=== PATIENT | female | born 1990 | race African-American/Black ===

== ENCOUNTER 2022-11-18 17:41 | Emergency (ER) | payer OTHER ==
[2022-11-18 18:01] VITALS: BP 116/77; PULSE 95; RESP 18; TEMP 97.7; BMI 31.6
[2022-11-18] MEDS ORDERED: LORATADINE 10 MG TABLET PO ONE (18:18)
[2022-11-18] MEDS ORDERED: LORATADINE 10 MG TABLET ONE (18:20)
[2022-11-18 19:01] LABS: THROAT:GRP A STREP NOT DETECTED (NOTDETECTED)
== END 2022-11-18 18:29 | disposition home or self-care (01) ==
LOC: JERFT 17:41 → JER 17:41 → JERFT 18:29
DX: J30.89 Other allergic rhinitis (principal); R07.0 Pain in throat; H57.9 Unspecified disorder of eye and adnexa; H04.209 Unspecified epiphora, unspecified side
CPT/HCPCS: 0241U-QW; 87651; 99283-25

== ENCOUNTER 2023-04-22 16:18 | Emergency (ER) | payer OTHER ==
[2023-04-22 16:49] VITALS: BP 106/66; PULSE 92; RESP 18; TEMP 97.4; BMI 32.7
== END 2023-04-22 18:39 | disposition home or self-care (01) ==
LOC: JERFT 16:18 → JER 16:18 → JERFT 18:39
DX: N63.20 Unspecified lump in the left breast, unspecified quadrant (principal)
CPT/HCPCS: 99282-25

== ENCOUNTER → 2023-05-16 | Day surgery (SDC) | payer OTHER | END | disposition home or self-care (01) | LOC: JRADUS-SUR 08:26 | PROVIDERS: ATTEND Registered Nurse | PROC: 0H9U3ZX Drainage of Left Breast, Percutaneous Approach, Diagnostic (ICD-10-PCS; principal; 2023-05-16) | DX: N64.89 Other specified disorders of breast (principal) | CPT/HCPCS: 19083; 19084; 76641-TC-LT; 77065-TC; 87899; A4648 ==

== ENCOUNTER 2023-08-22 19:11 | Emergency (ER) | payer OTHER ==
[2023-08-22 19:46] VITALS: BP 121/80; PULSE 83; RESP 20; TEMP 98.1; BMI 32.8
[2023-08-22] MEDS: ACETAMINOPHEN 325 MG TABLET (FP) PO ONE (22:19)
[2023-08-22] MEDS ORDERED: ACETAMINOPHEN 500 MG TABLET (FP) ONE (22:20)
== END 2023-08-22 22:28 | disposition home or self-care (01) ==
LOC: JERFT 19:11 → JER 19:11 → JERFT 22:28
DX: M25.571 Pain in right ankle and joints of right foot (principal); X50.1XXA Overexertion from prolonged static or awkward postures, initial encounter
CPT/HCPCS: 73610-TC-RT-FY; 73630-TC-RT-FY; 99283-25

== ENCOUNTER 2024-01-12 18:46 | Emergency (ER) | payer OTHER ==
[2024-01-12 19:19] VITALS: BP 114/72; PULSE 88; RESP 18; TEMP 98; BMI 36.2
[2024-01-12] MEDS: ALBUTEROL SO4 HFA INHALER IH PRN (20:03)
[2024-01-12] MEDS ORDERED: DEXAMETHASONE SOD PHOSPHATE 10 MG/1 ML VIAL ONE (23:23)
[2024-01-12] MEDS ORDERED: ACETAMINOPHEN 325 MG TABLET (FP) ONE (23:38)
== END 2024-01-12 21:45 | disposition home or self-care (01) ==
LOC: JER 18:46
DX: H66.92 Otitis media, unspecified, left ear (principal); H92.02 Otalgia, left ear; J45.909 Unspecified asthma, uncomplicated; Z76.0 Encounter for issue of repeat prescription
CPT/HCPCS: 99283-25

== ENCOUNTER 2024-01-12 21:48 | Emergency (ER) | payer OTHER ==
[2024-01-12 22:05] VITALS: BMI 35.9
[2024-01-12 22:35] VITALS: BP 118/87; PULSE 73; RESP 16; TEMP 97.8
[2024-01-12] MEDS ORDERED: ALBUTEROL SO4 2.5/IPRATROPIUM 0.5 INH SOL 3 ML VIAL.NEB. NEB ONE (22:42)
[2024-01-12] MEDS: ALBUTEROL SO4 2.5/IPRATROPIUM 0.5 INH SOL 3 ML VIAL.NEB. NEB SCH (22:50)
[2024-01-12] MEDS: DEXAMETHASONE 4 MG TABLET (FP) PO ONE (23:30)
[2024-01-12] MEDS: DEXAMETHASONE LIQUID 0.5 MG/5 ML PO ONE (23:36)
[2024-01-12] MEDS: ACETAMINOPHEN 500 MG TABLET (FP) PO ONE (23:51)
[2024-01-13] MEDS ORDERED: KETOROLAC TROMETHAMINE 30 MG/1 ML VIAL ONE (00:06)
[2024-01-13] MEDS ORDERED: ONDANSETRON *ODT* 4 MG TABLET ONE (00:10)
[2024-01-13] MEDS: ONDANSETRON *ODT* 4 MG TABLET SL ONE (00:15)
[2024-01-13] MEDS: KETOROLAC TROMETHAMINE 30 MG/1 ML VIAL IM ONE (00:15)
[2024-01-13 02:26] LABS: HIV INTERPRETATION NEGATIVE (NEGATIVE)
== END 2024-01-13 01:12 | disposition home or self-care (01) ==
LOC: JER 21:48
PROC: 3E0F7GC Introduction of Other Therapeutic Substance into Respiratory Tract, Via Natural or Artificial Opening (ICD-10-PCS; 2024-01-12)
PROC: 3E0133Z Introduction of Anti-inflammatory into Subcutaneous Tissue, Percutaneous Approach (ICD-10-PCS; principal; 2024-01-13)
DX: J45.21 Mild intermittent asthma with (acute) exacerbation (principal); R07.2 Precordial pain; R06.02 Shortness of breath; R05.9 Cough, unspecified; R11.0 Nausea
CPT/HCPCS: 36415; 71046-TC-FY; 86803; 87389; 93005; 93010; 94640; 96374; 99285-25; Q0162

== ENCOUNTER 2024-01-25 18:15 | Emergency (ER) | payer OTHER ==
[2024-01-25 18:38] VITALS: TEMP 98.3; BMI 34.9
[2024-01-25] MEDS ORDERED: ALBUTEROL SO4 2.5/IPRATROPIUM 0.5 INH SOL 3 ML VIAL.NEB. NEB ONE (19:14)
[2024-01-25] MEDS ORDERED: ACETAMINOPHEN INJECTION 100 ML ONE (19:14)
[2024-01-25] MEDS: ALBUTEROL SO4 2.5/IPRATROPIUM 0.5 INH SOL 3 ML VIAL.NEB. NEB SCH (19:30)
[2024-01-25] MEDS: ACETAMINOPHEN 1000 MG/100 ML BAG IVPB ONE (19:30)
[2024-01-25 19:56] LABS: INR 1.08 (0.83-1.09); PROTHROMBIN TIME (PATIENT) 12.2 SEC (9.7-13.0)
[2024-01-25 19:59] LABS: ACTIVATED PTT 33.9 SECONDS (25.2-36.5)
[2024-01-25 20:00] LABS: EOS % 4.1 % (0-4.5); HEMATOCRIT 37.8 % (32.4-45.2); HEMOGLOBIN 12.2 GM/dL (10.7-15.3); LYMPH % 32.1 % (8-40); MCH 24.8 pg (25.7-33.7); MCHC 32.4 g/dl (32.0-36.0); MEAN CELL VOLUME 76.5 fl (80-96); MEAN PLT VOLUME 8.1 fl (7.5-11.1); MONO % 5.4 % (3.8-10.2); NEUT % 57.4 % (42.8-82.8); PLATELET COUNT 315 10^3/uL (134-434); RBC 4.94 M/mm3 (3.60-5.2); RDW 15.9 % (11.6-15.6); WHITE BLOOD COUNT 7.6 K/mm3 (4.0-10.0)
[2024-01-25 20:07] LABS: VENOUS BASE EXCESS 0.5 mmol/L (-2-2); VENOUS O2 SATURATION 45.1 % (70-80); VENOUS PCO2 49.9 mmHg (38-52); VENOUS PH 7.349 (7.310-7.410)
[2024-01-25 20:08] LABS: POTASSIUM 3.7 mmol/L (3.5-5.1)
[2024-01-25 20:10] LABS: ALBUMIN 3.5 g/dl (3.4-5.0); CALCIUM 8.9 mg/dL (8.5-10.1)
[2024-01-25 20:11] LABS: BLOOD UREA NITROGEN 9.8 mg/dL (7-18)
[2024-01-25 20:14] LABS: CREATININE 0.8 mg/dL (0.55-1.3)
[2024-01-25 20:15] LABS: BILIRUBIN,TOTAL 0.2 mg/dL (0.2-1); TOT PROT 7.1 g/dl (6.4-8.2)
[2024-01-25] MEDS ORDERED: predniSONE 10 MG TABLET (UD) ONE (21:27)
[2024-01-25] MEDS ORDERED: predniSONE 20 MG TABLET (UD) ONE (21:27)
[2024-01-25] MEDS: predniSONE 20 MG TABLET (UD) PO ONE (21:34)
[2024-01-25 21:35] VITALS: BP 138/98; PULSE 88; RESP 24
[2024-01-26] MEDS ORDERED: predniSONE 20 MG TABLET (UD) PO ONE (20:35)
== END 2024-01-25 22:27 | disposition home or self-care (01) ==
LOC: JER 18:15
PROC: 3E033NZ Introduction of Analgesics, Hypnotics, Sedatives into Peripheral Vein, Percutaneous Approach (ICD-10-PCS; principal; 2024-01-25)
PROC: 3E0F7GC Introduction of Other Therapeutic Substance into Respiratory Tract, Via Natural or Artificial Opening (ICD-10-PCS; 2024-01-25)
DX: J45.901 Unspecified asthma with (acute) exacerbation (principal); R05.9 Cough, unspecified; R06.02 Shortness of breath; M79.662 Pain in left lower leg; Z20.822 Contact with and (suspected) exposure to COVID-19
CPT/HCPCS: 0241U-QW; 36415; 71045-TC-FY; 80053; 82803; 84484; 84703; 85025; 85379; 85610; 85730; 86850; 86900; 86901; 93005; 93010; 94640; 96374; 99285-25; J0131

== ENCOUNTER 2024-01-31 20:17 | Observation (INO) | payer OTHER ==
[2024-01-31 20:27] VITALS: BMI 27.4
[2024-01-31] MEDS ORDERED: ALBUTEROL SO4 2.5/IPRATROPIUM 0.5 INH SOL 3 ML VIAL.NEB. NEB ONE (20:50)
[2024-01-31] MEDS: ALBUTEROL SO4 2.5/IPRATROPIUM 0.5 INH SOL 3 ML VIAL.NEB. NEB SCH (20:51)
[2024-01-31] MEDS ORDERED: MAGNESIUM SULFATE IN WATER 2 GM/50 ML IVPB IVPB ONE (21:01)
[2024-01-31] MEDS: MAGNESIUM SULFATE IN WATER 2 GM/50 ML IVPB IVPB ONE (21:01)
[2024-01-31 21:45] LABS: BASO % 0.9 % (0-2.0); EOS % 4.2 % (0-4.5); HEMOGLOBIN 11.9 GM/dL (10.7-15.3); LYMPH % 34.8 % (8-40); MCHC 32.3 g/dl (32.0-36.0); MEAN CELL VOLUME 77.4 fl (80-96); MONO % 7.1 % (3.8-10.2); PLATELET COUNT 319 10^3/uL (134-434); RBC 4.78 M/mm3 (3.60-5.2); RDW 15.9 % (11.6-15.6); WHITE BLOOD COUNT 7.8 K/mm3 (4.0-10.0)
[2024-01-31 21:57] LABS: POTASSIUM 3.7 mmol/L (3.5-5.1)
[2024-01-31 21:59] LABS: BLOOD UREA NITROGEN 10.2 mg/dL (7-18)
[2024-01-31 22:00] LABS: ALBUMIN 3.4 g/dl (3.4-5.0)
[2024-01-31 22:03] LABS: CREATININE 0.8 mg/dL (0.55-1.3)
[2024-01-31 22:04] LABS: BILIRUBIN,TOTAL 0.2 mg/dL (0.2-1); TOT PROT 6.8 g/dl (6.4-8.2)
[2024-01-31] MEDS ORDERED: KETOROLAC TROMETHAMINE 15 MG/ML VIAL ONE (23:03)
[2024-01-31] MEDS ORDERED: methylPREDNISolone NA SUCC 125 MG/2 ML VIAL ONE (23:03)
[2024-01-31] MEDS: methylPREDNISolone NA SUCC 125 MG/2 ML VIAL IVPB ONE (23:04)
[2024-01-31] MEDS: KETOROLAC TROMETHAMINE 15 MG/ML VIAL IVPUSH ONE (23:09)
[2024-02-01] MEDS: ALBUTEROL SO4 0.083% IH SOL 2.5 MG/3 ML VIAL.NEB. NEB ONE
[2024-02-01] MEDS ORDERED: ALBUTEROL SO4 0.083% IH SOL 2.5 MG/3 ML VIAL.NEB. NEB ONE
[2024-02-01 01:53] VITALS: RESP 16
[2024-02-01] MEDS ORDERED: ALBUTEROL SULFATE 0.021% (0.63 MG/3 ML) VIAL.NEB NEB PRN (02:41)
[2024-02-01] MEDS ORDERED: ACETAMINOPHEN 325 MG TABLET (FP) PO PRN (02:46)
[2024-02-01 05:59] VITALS: PULSE 80; TEMP 97.7
[2024-02-01 06:45] LABS: BASO % 0.4 % (0-2.0); EOS % 0.1 % (0-4.5); HEMATOCRIT 39.8 % (32.4-45.2); HEMOGLOBIN 12.7 GM/dL (10.7-15.3); LYMPH % 9.8 % (8-40); MEAN CELL VOLUME 78.1 fl (80-96); MONO % 0.9 % (3.8-10.2); NEUT % 88.8 % (42.8-82.8); PLATELET COUNT 314 10^3/uL (134-434); RBC 5.09 M/mm3 (3.60-5.2); RDW 15.5 % (11.6-15.6)
[2024-02-01 06:59] LABS: POTASSIUM 4.4 mmol/L (3.5-5.1)
[2024-02-01 07:01] LABS: CALCIUM 9.1 mg/dL (8.5-10.1)
[2024-02-01 07:02] LABS: ALBUMIN 3.5 g/dl (3.4-5.0); MAGNESIUM 2.4 mg/dL (1.8-2.4)
[2024-02-01 07:05] LABS: CREATININE 0.9 mg/dL (0.55-1.3); PHOSPHOROUS 2.2 mg/dL (2.5-4.9)
[2024-02-01 07:06] LABS: BILIRUBIN,TOTAL 0.3 mg/dL (0.2-1); TOT PROT 7.4 g/dl (6.4-8.2)
[2024-02-01] MEDS ORDERED: ALBUTEROL SO4 2.5/IPRATROPIUM 0.5 INH SOL 3 ML VIAL.NEB. NEB ONE (08:54)
[2024-02-01] MEDS ORDERED: INSULIN ASPART SLIDING SCALE (NOVOLOG) 1 VIAL SQ ONE (08:55)
[2024-02-01] MEDS: INSULIN ASPART SLIDING SCALE (NOVOLOG) 1 VIAL SQ SCH (08:58)
[2024-02-01] MEDS: ALBUTEROL SO4 2.5/IPRATROPIUM 0.5 INH SOL 3 ML VIAL.NEB. NEB SCH (08:59)
[2024-02-01] MEDS ORDERED: PATIENT'S OWN MEDICATION (NON-FORMULARY) (Pentosan Polysulfate Sodium [Elmiron] 100 MG Cap PO SCH (10:00)
[2024-02-01] MEDS ORDERED: PATIENT'S OWN MEDICATION (NON-FORMULARY) (Mirabegron [Mirabegron Er] 25 MG Tab.Er.24h) PO SCH (10:00)
[2024-02-01] MEDS ORDERED: LORATADINE 10 MG TABLET ONE (10:50)
[2024-02-01] MEDS ORDERED: ENOXAPARIN NA (PORCINE) 40 MG/0.4 ML DISP.SYRIN SQ ONE (10:51)
[2024-02-01] MEDS: ENOXAPARIN NA (PORCINE) 40 MG/0.4 ML DISP.SYRIN SQ SCH (13:10)
[2024-02-01] MEDS: BUDESONIDE/FORMETEROL FUMARATE 80/4.5 mcg INHALER IH SCH (13:10)
[2024-02-01] MEDS: LORATADINE 10 MG TABLET PO SCH (13:10)
[2024-02-01 14:06] VITALS: BP 105/60
[2024-02-01] MEDS ORDERED: methylPREDNISolone NA SUCC 40 MG/1 ML VIAL IVPUSH SCH (22:00)
== END 2024-02-01 14:02 | disposition home or self-care (01) ==
LOC: JER 20:17 → JERBED 23:22 → UNDOADMOB 23:22 → INTOOBSV 02-01 02:32 → OBSVTOIN 02-01 02:32 → JERBED 02-01 07:46
PROVIDERS: ADMIT Student in an Organized Health Care Education/Training Program; ATTEND Internal Medicine
PROC: 3E0F7GC Introduction of Other Therapeutic Substance into Respiratory Tract, Via Natural or Artificial Opening (ICD-10-PCS; principal; 2024-02-01)
PROC: 3E0333Z Introduction of Anti-inflammatory into Peripheral Vein, Percutaneous Approach (ICD-10-PCS; 2024-02-01)
PROC: 3E033GC Introduction of Other Therapeutic Substance into Peripheral Vein, Percutaneous Approach (ICD-10-PCS; 2024-02-01)
DX: J45.901 Unspecified asthma with (acute) exacerbation (principal); F31.9 Bipolar disorder, unspecified; F20.9 Schizophrenia, unspecified; G47.33 Obstructive sleep apnea (adult) (pediatric); E11.9 Type 2 diabetes mellitus without complications; N30.10 Interstitial cystitis (chronic) without hematuria
CPT/HCPCS: 0241U-QW; 36415; 71045-TC-FY; 80053; 82962; 83036; 83735; 84100; 84484; 84703; 85025; 93005; 93010; 94640; 96365; 96375; 99285-25; G0378

== ENCOUNTER 2024-02-14 19:30 | Emergency (ER) | payer OTHER ==
[2024-02-14 19:41] VITALS: BP 127/84; PULSE 77; TEMP 98.4; BMI 33.3
[2024-02-14] MEDS ORDERED: ALBUTEROL SO4 2.5/IPRATROPIUM 0.5 INH SOL 3 ML VIAL.NEB. NEB ONE ×3 (20:43→22:10)
[2024-02-14] MEDS ORDERED: DEXAMETHASONE SOD PHOSPHATE 10 MG/1 ML VIAL ONE (20:43)
[2024-02-14] MEDS: ALBUTEROL SO4 2.5/IPRATROPIUM 0.5 INH SOL 3 ML VIAL.NEB. NEB SCH (20:52)
[2024-02-14] MEDS: DEXAMETHASONE SOD PHOSPHATE 10 MG/1 ML VIAL PO ONE (20:52)
[2024-02-14 22:51] VITALS: RESP 15
== END 2024-02-14 22:55 | disposition home or self-care (01) ==
LOC: JER 19:30
PROC: 3E0F7GC Introduction of Other Therapeutic Substance into Respiratory Tract, Via Natural or Artificial Opening (ICD-10-PCS; principal; 2024-02-14)
DX: R20.0 Anesthesia of skin (principal); R20.2 Paresthesia of skin; R51.9 Headache, unspecified; R42 Dizziness and giddiness; R06.02 Shortness of breath; R07.89 Other chest pain
CPT/HCPCS: 94640; 99283-25; J1100

== ENCOUNTER 2024-05-10 19:37 | Emergency (ER) | payer OTHER ==
[2024-05-10 19:40] VITALS: BP 125/81; PULSE 88; RESP 20; TEMP 98.4; BMI 34.7
== END 2024-05-10 23:32 | disposition home or self-care (01) ==
LOC: JERFT 19:37
DX: R05.9 Cough, unspecified (principal); J06.9 Acute upper respiratory infection, unspecified
CPT/HCPCS: 71046-TC-FY; 93005; 93010; 99284-25

== ENCOUNTER 2024-05-21 18:41 | Emergency (ER) | payer OTHER ==
[2024-05-21 18:57] VITALS: RESP 18; TEMP 98; BMI 35.7
[2024-05-21] MEDS ORDERED: BUDESONIDE 0.5 MG/2 ML INH SUSP VIAL NEB ONE (20:29)
[2024-05-21] MEDS ORDERED: ALBUTEROL SO4 2.5/IPRATROPIUM 0.5 INH SOL 3 ML VIAL.NEB. NEB ONE (20:34)
[2024-05-21] MEDS: ALBUTEROL SO4 2.5/IPRATROPIUM 0.5 INH SOL 3 ML VIAL.NEB. NEB ONE (20:39)
[2024-05-21] MEDS ORDERED: ACETYLCYSTEINE 20% 200MG/ML 4 ML VIAL *FOR ORAL / INH USE ONLY ONE (21:35)
[2024-05-21] MEDS: ACETYLCYSTEINE 20% 200MG/ML 30 ML VIAL *FOR ORAL / INH USE ONLY NEB ONE (21:41)
[2024-05-21 22:36] VITALS: BP 130/73; PULSE 88
== END 2024-05-21 23:44 | disposition home or self-care (01) ==
LOC: JER 18:41
PROC: 3E0F7GC Introduction of Other Therapeutic Substance into Respiratory Tract, Via Natural or Artificial Opening (ICD-10-PCS; principal; 2024-05-21)
PROC: 3E0F7GC Introduction of Other Therapeutic Substance into Respiratory Tract, Via Natural or Artificial Opening (ICD-10-PCS; 2024-05-21)
DX: J45.30 Mild persistent asthma, uncomplicated (principal); J40 Bronchitis, not specified as acute or chronic
CPT/HCPCS: 71046-TC-FY; 99284-25

== ENCOUNTER 2024-06-07 18:41 | Emergency (ER) | payer OTHER ==
[2024-06-07 18:48] VITALS: BP 108/74; PULSE 75; RESP 20; TEMP 97.6; BMI 35.9
[2024-06-07] MEDS ORDERED: ALBUTEROL SO4 2.5/IPRATROPIUM 0.5 INH SOL 3 ML VIAL.NEB. NEB ONE (20:03)
[2024-06-07] MEDS ORDERED: guaiFENesin/D-METHORPHAN HB 10 ML UNIT-DOSE CUPS ONE (20:04)
[2024-06-07] MEDS ORDERED: ACETAMINOPHEN 500 MG TABLET (FP) ONE (20:04)
[2024-06-07] MEDS: ACETAMINOPHEN 500 MG TABLET (FP) PO ONE (20:11)
[2024-06-07] MEDS: guaiFENesin/D-METHORPHAN HB 10 ML UNIT-DOSE CUPS PO ONE (20:11)
[2024-06-07] MEDS: ALBUTEROL SO4 2.5/IPRATROPIUM 0.5 INH SOL 3 ML VIAL.NEB. NEB ONE (20:11)
== END 2024-06-07 21:56 | disposition home or self-care (01) ==
LOC: JERFT 18:41
PROC: 3E0F7GC Introduction of Other Therapeutic Substance into Respiratory Tract, Via Natural or Artificial Opening (ICD-10-PCS; principal; 2024-06-07)
DX: J45.21 Mild intermittent asthma with (acute) exacerbation (principal); M72.2 Plantar fascial fibromatosis; M79.671 Pain in right foot; R05.9 Cough, unspecified; Y93.01 Activity, walking, marching and hiking
CPT/HCPCS: 99283-25

== ENCOUNTER 2024-06-10 19:36 | Emergency (ER) | payer OTHER ==
[2024-06-10 19:44] VITALS: BP 120/76; PULSE 93; RESP 18; TEMP 97.7; BMI 34.7
[2024-06-10] MEDS ORDERED: IBUPROFEN 400 MG TABLET (FP) PO ONE (23:17)
[2024-06-10] MEDS ORDERED: ACETAMINOPHEN 500 MG TABLET (FP) ONE (23:17)
[2024-06-10] MEDS: ACETAMINOPHEN 500 MG TABLET (FP) PO ONE (23:19)
[2024-06-10] MEDS: IBUPROFEN 400 MG TABLET (FP) PO ONE (23:19)
== END 2024-06-11 00:49 | disposition home or self-care (01) ==
LOC: JERFT 19:36
DX: J45.901 Unspecified asthma with (acute) exacerbation (principal); M79.671 Pain in right foot; G89.29 Other chronic pain
CPT/HCPCS: 99283-25

== ENCOUNTER 2024-07-26 18:07 | Emergency (ER) | payer OTHER ==
[2024-07-26 18:23] VITALS: BP 120/79; PULSE 86; RESP 20; TEMP 98.6; BMI 32.3
[2024-07-26] MEDS ORDERED: IBUPROFEN 600 MG TABLET (FP) PO ONE (18:57)
[2024-07-26] MEDS ORDERED: ACETAMINOPHEN 500 MG TABLET (FP) ONE (18:57)
[2024-07-26] MEDS: ACETAMINOPHEN 500 MG TABLET (FP) PO ONE (19:10)
[2024-07-26] MEDS: IBUPROFEN 600 MG TABLET (FP) PO ONE (19:10)
[2024-07-26 19:16] LABS: BASO % 0.7 % (0-2.0); EOS % 3.4 % (0-4.5); HEMATOCRIT 38.2 % (32.4-45.2); HEMOGLOBIN 12.6 GM/dL (10.7-15.3); MCH 25.3 pg (25.7-33.7); MEAN CELL VOLUME 76.5 fl (80-96); MEAN PLT VOLUME 7.8 fl (7.5-11.1); MONO % 8.1 % (3.8-10.2); NEUT % 61.8 % (42.8-82.8); PLATELET COUNT 283 10^3/uL (134-434); RDW 15.4 % (11.6-15.6); WHITE BLOOD COUNT 6.2 K/mm3 (4.0-10.0)
[2024-07-26 20:01] LABS: POTASSIUM 3.7 mmol/L (3.5-5.1)
[2024-07-26 20:05] LABS: CALCIUM 8.9 mg/dL (8.5-10.1)
[2024-07-26 20:06] LABS: ALBUMIN 3.6 g/dl (3.4-5.0); BLOOD UREA NITROGEN 11.8 mg/dL (7-18)
[2024-07-26 20:09] LABS: CREATININE 0.8 mg/dL (0.55-1.3)
[2024-07-26 20:11] LABS: BILIRUBIN,TOTAL 0.4 mg/dL (0.2-1); TOT PROT 6.8 g/dl (6.4-8.2)
[2024-07-26 20:56] LABS: HIV INTERPRETATION NEGATIVE (NEGATIVE)
== END 2024-07-26 22:19 | disposition home or self-care (01) ==
LOC: JER 18:07
DX: G93.2 Benign intracranial hypertension (principal); R51.9 Headache, unspecified; M54.2 Cervicalgia
CPT/HCPCS: 0241U-QW; 36415; 70450-TC; 80053; 84703; 85025; 86803; 87389; 99284-25